=== PATIENT | female | born 1940 | race Caucasian/White ===

== ENCOUNTER → 2017-03-01 | Day surgery (SDC) | payer OTHER ==
[2007-05-21 20:53] VITALS: BP 116/75
[~2017-03-01] MED LIST: ACIDOPHILUS PRO1 CAP PO; ALEVE220 MG PO; CALTRATE 600+D1 TAB PO; CENTRUM SILVER1 TA1 PO; GLUCOSAMINE & C1 TER PO; LEVOTHYROXIN0.088 M1 PO; TRIAMTERENE AND1 TAB PO; VALSARTAN320 MG PO; VERAPAMIL HCL240 M1 PO
--- NOTE | 2017-03-01 18:40 | Operative Report ---
Operative/Inv Procedure Report Surgery Date: 03/01/17 Name of Procedure: left ureter ESWL: fluoroscopy Pre-Operative Diagnosis: left ureter stone Post-Operative Diagnosis: same Estimated Blood Loss: none Surgeon/Claim Trainee: AMPARO SMITH MD Anesthesia: moderate sedation Specimens: none Complications: none Operative/Procedure Note Note: The patient was taken to the operating room and placed on the ESWL table in supine position. With the patient awake, timeout was performed in order to confirm the patient's identity, laterality, procedure, anesthesia, and other pertinent perioperative information. The patient's left flank was positioned over the ESWL table cut-out, overlying the dome of the shockwave generator. C- arm fluroscopy, as well as renal US was used to locate the stone, and evaluate the left kidney. The stone was visible on fluroloscopy at the level of the proximal ureter alongside the stent. Renal US confimred resolution of hydronephrosis with and additional stone seen in the kidney. The left ureter stone was approximate 7 mm in size, and it's position was optimized with fluoroscopy at AP and Oblique views. After adequate anesthesia and antibiotics, the left ureter E.S.W.L. was initiated at low power levels x200 shocks. After noting the patient's tolerance to the shockwaves, the shockwave power level was quickly maximumized. Toward the end of the procedure, the composition of the stone had changed significantly indicating the pulverization of the ureter stone. A total of 3000 shockwaves were delivered to the stone in order to achieve adequate lithotrypsy. The patient tolerated the procedure well, was awakened, and taken to recovery in satisfactory condition via stretcher. The pt. will be dischared to home with pain meds, diet orders, and intructions to catch fragments with straining the urine. The patient is to have follow-up renal ultrasound and KUB in 2 weeks, prior to follow-up visit in my office. Discharge Disposition: PACU CC: AMPARO SMITH MD
== END ==
LOC: STS 03:12
DX: N20.1 Calculus of ureter (principal); I10 Essential (primary) hypertension; Z87.891 Personal history of nicotine dependence
CPT/HCPCS: 36415; J2250